=== PATIENT | female | born 1980 | race Two or more races ===

== ENCOUNTER 2020-03-29 07:17 | Emergency (ER) | payer BC ==
[2020-03-29 07:29] VITALS: BMI 22.1
[2020-03-29 09:44] LABS: BASO % 0.4 % (0-2.0); EOS % 1.1 % (0-4.5); HEMATOCRIT 36.5 % (32.4-45.2); HEMOGLOBIN 12.2 GM/dL (10.7-15.3); MCHC 33.5 g/dl (32.0-36.0); MEAN CELL VOLUME 86.6 fl (80-96); MEAN PLT VOLUME 10.1 fl (7.5-11.1); MONO % 8.1 % (3.8-10.2); NEUT % 68.4 % (42.8-82.8); PLATELET COUNT 159 K/MM3 (134-434); RBC 4.21 M/mm3 (3.60-5.2); RDW 14.2 % (11.6-15.6); WHITE BLOOD COUNT 7.1 K/mm3 (4.0-10.0)
[2020-03-29 09:48] LABS: HCG,QUALITATIVE URINE Negative
[2020-03-29 09:49] LABS: EPI CELLS 9 /uL (0-25.1); HYALINE CASTS 0 /uL (0-3.1); URINE APPEARANCE CLEAR; URINE BACTERIA 962 /uL (0-1359); URINE BILIRUBIN NEGATIVE (NEGATIVE); URINE COLOR YELLOW; URINE GLUCOSE (UA) NEGATIVE (NEGATIVE); URINE KETONE NEGATIVE (NEGATIVE); URINE LEUK ESTERASE TRACE (NEGATIVE); URINE NITRITE NEGATIVE (NEGATIVE); URINE PROTEIN NEGATIVE (NEGATIVE); URINE RBC 46 /uL (0-23.9); URINE UROBILINOGEN 0.2 mg/dL (0.2-1.0); URINE WBC 20 /uL (0-25.8)
[2020-03-29 10:08] LABS: POTASSIUM 4.2 mmol/L (3.5-5.1)
[2020-03-29 10:10] LABS: CALCIUM 9.3 mg/dL (8.5-10.1)
[2020-03-29 10:14] LABS: CREATININE 0.6 mg/dL (0.55-1.3)
[2020-03-29 10:15] LABS: BILIRUBIN,TOTAL 0.7 mg/dL (0.2-1); TOT PROT 7.2 g/dl (6.4-8.2)
[2020-03-29 15:03] VITALS: BP 98/65; PULSE 58; TEMP 98
== END 2020-03-29 14:50 | disposition home or self-care (01) ==
LOC: JER 07:17
DX: N30.00 Acute cystitis without hematuria (principal)
CPT/HCPCS: 36415; 76830-TC; 80053; 81003; 84703; 85025; 99284-25